=== PATIENT | male | born 1945 | race Caucasian/White ===

== ENCOUNTER 2019-07-27 21:19 | Emergency (ER) | payer MEDICARE ==
[~2019-07-27] VITALS: Ht 167.6 cm; Wt 70.5 kg
[~2019-07-27 21:19] MED LIST: PANT-47 PO
--- NOTE | 2019-07-27 22:06 | NUR ---
Positive Jamie's sign left leg
[2019-07-27 22:50] LABS: D-DIMER 0.28 MG/L FEU (0-0.50)
[2019-07-27 23:10] VITALS: BP 164/89
== END 2019-07-27 23:11 | disposition home or self-care (01) ==
LOC: ER 21:19
DX: I83.93 Asymptomatic varicose veins of bilateral lower extremities (principal); K21.9 Gastro-esophageal reflux disease without esophagitis; G89.29 Other chronic pain; Z86.718 Personal history of other venous thrombosis and embolism; Z90.49 Acquired absence of other specified parts of digestive tract; Z98.890 Other specified postprocedural states; Z88.8 Allergy status to other drugs, medicaments and biological substances; Z79.899 Other long term (current) drug therapy
CPT/HCPCS: 36415; 85379; 99283

== ENCOUNTER 2021-12-27 01:08 | Emergency (ER) | payer MEDICARE ==
[~2021-12-27] VITALS: Ht 167.6 cm; Wt 64.7 kg
[2021-12-27] MEDS ORDERED: morphine 4 MG/ML inj SYRINge IV ONE (02:05)
[2021-12-27 02:51] LABS: BASOPHILS % (AUTO) 0.3 % (0-1); EOSINOPHILS # (AUTO) 0.1 X10'3 (0-0.9); EOSINOPHILS % (AUTO) 1.2 % (0-6); HEMOGLOBIN 13.1 g/dl (14.0-17.9); LYMPHOCYTES # (AUTO) 0.8 X10'3 (1.1-4.8); LYMPHOCYTES % (AUTO) 6.3 % (21-51); MEAN CORPUSCULAR HEMOGLOBIN 33.7 PG (27.0-31.0); MEAN CORPUSCULAR HGB CONC 34.5 g/dL (33.0-36.5); MEAN CORPUSCULAR VOLUME 97.7 FL (78-98); MEAN PLATELET VOLUME 9.3 FL (7.4-10.4); MONOCYTES # (AUTO) 1.3 X10'3 (0-0.9); MONOCYTES % (AUTO) 10.4 % (2-12); NEUTROPHILS # (AUTO) 10.6 X10'3 (1.8-7.7); NEUTROPHILS % (AUTO) 81.8 % (42-75); PLATELET COUNT 226 X10'3 (140-440); RED BLOOD COUNT 3.89 X10'6 (4.70-6.10); RED CELL DISTRIBUTION WIDTH 12.5 % (11.5-14.5); WHITE BLOOD COUNT 12.9 X10'3 (4.5-11.0)
[2021-12-27 03:02] LABS: ALANINE AMINOTRANSFERASE 17 U/L (12-78); ALBUMIN/GLOBULIN RATIO 0.9 (1.1-1.5); ALKALINE PHOSPHATASE 59 IU/L (46-116); ANION GAP 6 (8-16); ASPARTATE AMINO TRANSFERASE 19 U/L (10-37); BILIRUBIN,TOTAL 0.3 MG/DL (0.1-1.0); BLOOD UREA NITROGEN 23 MG/DL (7-18); BUN/CREATININE RATIO 18.7 (5.4-32.0); CALCIUM 8.9 MG/DL (8.5-10.1); CHLORIDE 103 MMOL/L (99-107); CREATINE KINASE 112 U/L (39-308); CREATININE 1.23 MG/DL (0.60-1.10); GLUCOSE 163 MG/DL (70-104); SODIUM 136 MMOL/L (135-145); TOTAL CARBON DIOXIDE 27.3 MMOL/L (24-32); TOTAL PROTEIN 8.3 G/DL (6.4-8.2); eGFR 57 ML/MIN
[2021-12-27] MEDS ORDERED: ringers solution, lactated 1000ml IV soln IV ONE (03:10)
[2021-12-27] MEDS ORDERED: ketorolac tromethamine 15mg/ml inj. IV ONE (03:15)
[2021-12-27 05:40] VITALS: BP 154/99
[2021-12-27] MEDS ORDERED: naproxen 500mg tablet PO ONE (05:50)
[2021-12-27] MEDS ORDERED: acetaminophen 325mg tablet PO ONE (05:50)
[2021-12-27] MEDS ORDERED: NAPR-56 PO (06:02)
[2021-12-28] MEDS ORDERED: LEVO750T68 PO (18:19)
[2021-12-28] MEDS ORDERED: HYDR-3965 PO (18:19)
== END 2021-12-27 06:51 | disposition home or self-care (01) ==
LOC: ER 01:09
DX: M25.532 Pain in left wrist (principal); M25.522 Pain in left elbow; K21.9 Gastro-esophageal reflux disease without esophagitis; M19.90 Unspecified osteoarthritis, unspecified site; G89.29 Other chronic pain; M10.9 Gout, unspecified; Z86.718 Personal history of other venous thrombosis and embolism; Z90.89 Acquired absence of other organs; Z98.890 Other specified postprocedural states; Z88.8 Allergy status to other drugs, medicaments and biological substances; Z79.899 Other long term (current) drug therapy
CPT/HCPCS: 36415; 80053; 82550; 85025; 85379; 85610; 93971; 96361; 96374; 96375; 99284; J1885; J2270; J7120

== ENCOUNTER 2021-12-28 13:59 | Emergency (ER) | payer MEDICARE ==
[~2021-12-28] VITALS: Ht 167.6 cm; Wt 65.0 kg
[~2021-12-28 13:59] MED LIST changes: +NAPR-56 PO
[2021-12-28 16:54] LABS: BASOPHILS % (AUTO) 0.4 % (0-1); EOSINOPHILS # (AUTO) 0.4 X10'3 (0-0.9); EOSINOPHILS % (AUTO) 3.7 % (0-6); HEMATOCRIT 35.1 % (42.0-52.0); HEMOGLOBIN 12.2 g/dl (14.0-17.9); LYMPHOCYTES # (AUTO) 1.7 X10'3 (1.1-4.8); LYMPHOCYTES % (AUTO) 16.9 % (21-51); MEAN CORPUSCULAR HEMOGLOBIN 33.7 PG (27.0-31.0); MEAN CORPUSCULAR HGB CONC 34.8 g/dL (33.0-36.5); MEAN PLATELET VOLUME 9.1 FL (7.4-10.4); MONOCYTES # (AUTO) 1.2 X10'3 (0-0.9); NEUTROPHILS # (AUTO) 6.8 X10'3 (1.8-7.7); PLATELET COUNT 231 X10'3 (140-440); RED BLOOD COUNT 3.62 X10'6 (4.70-6.10); RED CELL DISTRIBUTION WIDTH 12.6 % (11.5-14.5); WHITE BLOOD COUNT 10.1 X10'3 (4.5-11.0)
[2021-12-28 17:04] LABS: ALANINE AMINOTRANSFERASE 19 U/L (12-78); ALBUMIN 3.5 G/DL (3.4-5.0); ALBUMIN/GLOBULIN RATIO 0.8 (1.1-1.5); ALKALINE PHOSPHATASE 55 IU/L (46-116); ANION GAP 6 (8-16); ASPARTATE AMINO TRANSFERASE 19 U/L (10-37); BILIRUBIN,TOTAL 0.3 MG/DL (0.1-1.0); BLOOD UREA NITROGEN 19 MG/DL (7-18); BUN/CREATININE RATIO 16.1 (5.4-32.0); CALCIUM 9.3 MG/DL (8.5-10.1); CHLORIDE 104 MMOL/L (99-107); CREATININE 1.18 MG/DL (0.60-1.10); GLUCOSE 96 MG/DL (70-104); MAGNESIUM 2.3 MG/DL (1.5-2.4); POTASSIUM 4.9 MMOL/L (3.5-5.1); SODIUM 139 MMOL/L (135-145); TOTAL PROTEIN 7.8 G/DL (6.4-8.2); eGFR 60 ML/MIN
[2021-12-28] MEDS ORDERED: ondansetron/PF 4mg/2ml inj IV ONE (17:20)
[2021-12-28] MEDS ORDERED: ertapenem sod inj 1 GM in normal saline 100ml IV soln 100 ML IV ONE (17:20)
[2021-12-28] MEDS ORDERED: morphine 4 MG/ML inj SYRINge IV ONE (17:20)
[2021-12-28] MEDS ORDERED: ertapenem sod inj 1 GM in normal saline 100ml IV soln 110 ML IV ONE (17:25)
[2021-12-28] MEDS ORDERED: meropenem inj 500 MG in normal saline 100ml IV soln 100 ML IV ONE (17:35)
[2021-12-28] MEDS ORDERED: HYDR-3965 PO (18:19)
[2021-12-28] MEDS ORDERED: LEVO750T68 PO (18:19)
[2021-12-28 18:22] VITALS: BP 155/89
== END 2021-12-29 03:16 | disposition home or self-care (01) ==
LOC: ER 14:00
DX: L03.114 Cellulitis of left upper limb (principal); G89.29 Other chronic pain; M54.9 Dorsalgia, unspecified; K21.9 Gastro-esophageal reflux disease without esophagitis; Z88.8 Allergy status to other drugs, medicaments and biological substances; Z79.899 Other long term (current) drug therapy
CPT/HCPCS: 36415; 71045; 73090; 80053; 83605; 83735; 84145; 85025; 87040; 96365; 96375; 99285; J2185; J2270; J2405; J3490; 93005

== ENCOUNTER 2023-07-22 10:57 | Emergency (ER) | payer MEDICARE, MEDICAID ==
[~2023-07-22] VITALS: Ht 167.6 cm; Wt 67.8 kg
[~2023-07-22 10:57] MED LIST changes: -NAPR-56 PO
[2023-07-22 13:44] VITALS: BP 167/91; PULSE 69; RESP 16; TEMP 98.6; O2SAT 98
== END 2023-07-22 13:46 | disposition home or self-care (01) ==
LOC: ER 10:58
DX: S00.83XA Contusion of other part of head, initial encounter (principal); G89.29 Other chronic pain; Z86.718 Personal history of other venous thrombosis and embolism; Z98.890 Other specified postprocedural states; Z88.8 Allergy status to other drugs, medicaments and biological substances; Z79.899 Other long term (current) drug therapy; W19.XXXA Unspecified fall, initial encounter; Y93.89 Activity, other specified; Y92.89 Other specified places as the place of occurrence of the external cause; Y99.8 Other external cause status
CPT/HCPCS: 70450; 70486; 99284

== ENCOUNTER 2024-01-19 09:38 | Emergency (ER) | payer MEDICARE, MEDICAID ==
[~2024-01-19] VITALS: Ht 167.6 cm; Wt 68.2 kg
[2024-01-19] MEDS ORDERED: IBUP-862 PO (10:21)
[2024-01-19] MEDS ORDERED: HYDR-3965 PO (10:21)
[2024-01-19] MEDS ORDERED: COLC0.6C3 PO (10:21)
[2024-01-19] MEDS: ketorolac trometh 15mg/ml vial 15 MG/ML ML IM ONE (10:28)
[2024-01-19 10:34] VITALS: BP 133/88; PULSE 103; RESP 15; TEMP 97.5; O2SAT 97
== END 2024-01-19 10:38 | disposition home or self-care (01) ==
LOC: ER 09:39
DX: M10.9 Gout, unspecified (principal); K21.9 Gastro-esophageal reflux disease without esophagitis; G89.29 Other chronic pain; M54.9 Dorsalgia, unspecified; M19.90 Unspecified osteoarthritis, unspecified site; Z88.8 Allergy status to other drugs, medicaments and biological substances; Z79.1 Long term (current) use of non-steroidal anti-inflammatories (NSAID); Z79.899 Other long term (current) drug therapy; Z90.49 Acquired absence of other specified parts of digestive tract; Z86.718 Personal history of other venous thrombosis and embolism; Z98.890 Other specified postprocedural states
CPT/HCPCS: 96372; 99284; J1885

== ENCOUNTER 2024-10-14 10:37 | Outpatient (CLI) | payer MEDICARE, MEDICAID ==
[~2024-10-14 10:37] MED LIST changes: +COLC0.6C3 PO; +IBUP-862 PO
--- NOTE | 2024-10-14 12:56 | RADIOLOGY REPORT ---
Exam: US US NON VASCULAR Clinical History: OTHER SPECIFIED JOINT DISORDERS, LEFT HAND Comparison: None Technique: Targeted sonographic evaluation of the soft tissues of the left wrist was obtained utilizing graysca le and color Doppler imaging. Findings/Impression: Mixed echogenic structure is present in the region of interest measuring 0.6 x 0.4 cm. This may repre sent a complicated cyst or seroma. Clinical correlation advised. MRI without and with intravenous con trast could be considered to further evaluate if clinically indicated on a nonemergent basis.
== END 2024-10-14 23:59 | disposition home or self-care (01) ==
LOC: RAD 10:37
PROVIDERS: ATTEND Family Medicine
DX: M25.842 Other specified joint disorders, left hand (principal)
CPT/HCPCS: 76882